=== PATIENT | female | born 1990 | race Caucasian/White ===

== ENCOUNTER 2016-09-12 23:30 | Emergency (ER) | payer MEDICAID ==
[~2016-09-12] VITALS: Ht 162.6 cm; Wt 82.6 kg
[2016-09-12 23:31] VITALS: BP 119/73
== END 2016-09-13 01:16 | disposition home or self-care (01) ==
LOC: ED 09-13 01:02
DX: K01.1 Impacted teeth (principal)
CPT/HCPCS: 99283

== ENCOUNTER 2016-10-23 12:29 | Emergency (ER) | payer MEDICAID ==
[~2016-10-23] VITALS: Ht 162.6 cm; Wt 83.0 kg
[2016-10-23 12:30] VITALS: BP 116/74
[2016-10-23] MEDS ORDERED: LIDOCAINE 1%, 20ML ONE (13:05)
[2016-10-23] MEDS ORDERED: BACITRACIN ZINC OINT 500U/GM, 0.9 GM ONE (13:28)
[2016-10-23] MEDS ORDERED: LIDOCAINE 1%, 20ML SQ ONE (13:30)
== END 2016-10-23 13:41 | disposition home or self-care (01) ==
LOC: ED 13:35
DX: S61.411A Laceration without foreign body of right hand, initial encounter (principal); X58.XXXA Exposure to other specified factors, initial encounter; Y93.89 Activity, other specified; Y99.8 Other external cause status; Y92.099 Unspecified place in other non-institutional residence as the place of occurrence of the external cause
CPT/HCPCS: 12002; 99283

== ENCOUNTER 2016-10-24 16:57 | Emergency (ER) | payer MEDICAID ==
[~2016-10-24] VITALS: Ht 162.6 cm; Wt 84.8 kg
[2016-10-24 17:18] VITALS: BP 110/75
[2016-10-24] MEDS ORDERED: BACITRACIN ZINC OINT 500U/GM, 0.9 GM ONE (18:38)
== END 2016-10-24 18:48 | disposition home or self-care (01) ==
LOC: ED 18:42
DX: S61.411D Laceration without foreign body of right hand, subsequent encounter (principal)
CPT/HCPCS: 99284

== ENCOUNTER 2017-01-21 19:39 | Emergency (ER) | payer MEDICAID ==
[~2017-01-21] VITALS: Ht 162.6 cm; Wt 82.8 kg
[2017-01-21] MEDS ORDERED: PHENAZOPYRIDINE 200 MG TABLET PO ONE (20:00)
[2017-01-21] MEDS ORDERED: PHENAZOPYRIDINE 200 MG TABLET ONE (20:08)
[2017-01-21 20:13] LABS: HEMATOCRIT 44.1 % (34.6-47.8); HEMOGLOBIN 14.9 g/dL (11.7-16.4); WHITE BLOOD COUNT 11.6 x10^3/uL (3.4-10)
[2017-01-21 20:26] LABS: ASPARTATE AMINO TRANSFERASE 21 U/L (15-37); BLOOD UREA NITROGEN 10 mg/dL (7-18)
[2017-01-21 21:53] VITALS: BP 112/60
== END 2017-01-21 23:15 | disposition home or self-care (01) ==
LOC: ED 21:08
DX: N30.90 Cystitis, unspecified without hematuria (principal); Z32.01 Encounter for pregnancy test, result positive
CPT/HCPCS: 36415; 76700; 76801; 80048; 80076; 81001; 82040; 83690; 84702; 84703; 85025; 87086; 87147; 99285

== ENCOUNTER 2017-02-25 13:33 | Emergency (ER) | payer MEDICAID ==
[~2017-02-25] VITALS: Ht 162.6 cm; Wt 77.0 kg
[2017-02-25] MEDS ORDERED: SODIUM CHLORIDE FLUSH 10ML SYR IVF ONE (15:00)
[2017-02-25] MEDS ORDERED: SODIUM CHLORIDE 0.9% 1,000ML IVBOLUS ONE (15:00)
[2017-02-25 15:12] LABS: BASOPHILS # (AUTO) 0.03 x10^3/uL (0-0.1); BASOPHILS % (AUTO) 0 % (0-1); EOSINOPHILS # (AUTO) 0.08 x10^3/uL (0-0.4); EOSINOPHILS % (AUTO) 1 % (1-7); LYMPHOCYTES # (AUTO) 3.09 x10^3/uL (1-3.4); LYMPHOCYTES % (AUTO) 33 % (22-44); MD NO; MEAN CORPUSCULAR HGB CONC 33.7 g/dL (32.4-35.8); MEAN CORPUSCULAR VOLUME 89.3 fL (80-100); MEAN PLATELET VOLUME 8.3 fL (7.4-10.4); MONOCYTES % (AUTO) 5 % (2-9); NEUTROPHILS # (AUTO) 5.76 x10^3/uL (1.8-6.8); NEUTROPHILS % (AUTO) 61 % (42-75); PLATELET COUNT 279 x10^3/uL (130-400); RED BLOOD COUNT 4.55 x10^6/uL (3.82-5.3); RED CELL DISTRIBUTION WIDTH 13.4 % (9.6-15.2)
[2017-02-25 15:23] LABS: ALANINE AMINOTRANSFERASE 17 U/L (12-78); ALBUMIN 3.7 g/dL (3.4-5.0); ANION GAP 9 mmol/L (5-15); CALCIUM 8.7 mg/dL (8.5-10.1); CHLORIDE 107 mmol/L (98-107); CREATININE 0.66 mg/dL (0.55-1.02)
[2017-02-25 15:40] LABS: ALKALINE PHOSPHATASE 62 U/L (45-117); BILIRUBIN,TOTAL 0.4 mg/dL (0.2-1.0); TOTAL PROTEIN 7.9 g/dL (6.4-8.2)
[2017-02-25 17:16] VITALS: BP 118/61
[2017-02-25 18:51] LABS: MICROSCOPIC INDICATED
[2017-02-25 19:03] LABS: CULTURE INDICATED? YES
== END 2017-02-25 19:40 | disposition home or self-care (01) ==
LOC: ED 17:32
DX: O23.11 Infections of bladder in pregnancy, first trimester (principal); Z3A.11 11 weeks gestation of pregnancy
CPT/HCPCS: 36415; 76801; 80053; 81001; 84702; 85025; 86901; 87086; 99285

== ENCOUNTER 2017-06-08 16:47 | Emergency (ER) | payer MEDICAID ==
[~2017-06-08] VITALS: Ht 162.6 cm; Wt 83.8 kg
[2017-06-08] MEDS ORDERED: PREN1TAB28 PO (17:14)
[2017-06-08 17:45] VITALS: BP 122/65
== END 2017-06-08 18:58 | disposition home or self-care (01) ==
LOC: ED 18:45
DX: O99.512 Diseases of the respiratory system complicating pregnancy, second trimester (principal); O99.89 Other specified diseases and conditions complicating pregnancy, childbirth and the puerperium; O21.9 Vomiting of pregnancy, unspecified; J32.1 Chronic frontal sinusitis; H66.001 Acute suppurative otitis media without spontaneous rupture of ear drum, right ear; Z3A.24 24 weeks gestation of pregnancy
CPT/HCPCS: 99283

== ENCOUNTER 2017-12-25 14:06 | Emergency (ER) | payer MEDICAID ==
[~2017-12-25] VITALS: Ht 162.6 cm; Wt 89.5 kg
[~2017-12-25 14:06] MED LIST: PREN1TAB28 PO
[2017-12-25 14:50] LABS: ALANINE AMINOTRANSFERASE 53 U/L (12-78); ALBUMIN 3.9 g/dL (3.4-5.0); ANION GAP 7 mmol/L (5-15); CALCIUM 8.4 mg/dL (8.5-10.1); CHLORIDE 108 mmol/L (98-107); CREATININE 0.88 mg/dL (0.55-1.02)
[2017-12-25 14:52] LABS: ALKALINE PHOSPHATASE 99 U/L (45-117); BILIRUBIN,TOTAL 0.5 mg/dL (0.2-1.0); TOTAL PROTEIN 7.7 g/dL (6.4-8.2)
[2017-12-25 14:55] LABS: BASOPHILS # (AUTO) 0.05 x10^3/uL (0-0.1); BASOPHILS % (AUTO) 1 % (0-1); EOSINOPHILS # (AUTO) 0.29 x10^3/uL (0-0.4); EOSINOPHILS % (AUTO) 3 % (1-7); LYMPHOCYTES # (AUTO) 2.66 x10^3/uL (1-3.4); LYMPHOCYTES % (AUTO) 31 % (22-44); MD NO; MEAN CORPUSCULAR HEMOGLOBIN 29.9 pg (27.0-34.8); MEAN CORPUSCULAR HGB CONC 33.8 g/dL (32.4-35.8); MEAN CORPUSCULAR VOLUME 88.5 fL (80-100); MEAN PLATELET VOLUME 8.1 fL (7.4-10.4); MONOCYTES # (AUTO) 0.59 x10^3/uL (0.2-0.8); MONOCYTES % (AUTO) 7 % (2-9); NEUTROPHILS # (AUTO) 4.88 x10^3/uL (1.8-6.8); NEUTROPHILS % (AUTO) 58 % (42-75); PLATELET COUNT 273 x10^3/uL (130-400); RED CELL DISTRIBUTION WIDTH 14.1 % (9.6-15.2)
[2017-12-25 16:35] LABS: HCG UR SG 1.029 (1.003-1.030)
[2017-12-25 17:53] VITALS: BP 105/69
[2017-12-25 18:19] LABS: MICROSCOPIC AUTO
[2017-12-25 18:22] LABS: CULTURE INDICATED? NO
== END 2017-12-25 17:55 | disposition home or self-care (01) ==
LOC: ED 16:08
DX: N93.8 Other specified abnormal uterine and vaginal bleeding (principal)
CPT/HCPCS: 36415; 76830; 80053; 81001; 81025; 85025; 93005; 99285

== ENCOUNTER 2018-07-23 17:38 | Emergency (ER) | payer MEDICAID ==
[~2018-07-23] VITALS: Ht 160 cm; Wt 82.1 kg
[2018-07-23 18:07] VITALS: BP 102/65
[2018-07-23 18:39] LABS: BASOPHILS # (AUTO) 0.04 x10^3/uL (0-0.1); BASOPHILS % (AUTO) 1 % (0-1); EOSINOPHILS # (AUTO) 0.12 x10^3/uL (0-0.4); EOSINOPHILS % (AUTO) 1 % (1-7); LYMPHOCYTES # (AUTO) 3.02 x10^3/uL (1-3.4); LYMPHOCYTES % (AUTO) 36 % (22-44); MD NO; MEAN CORPUSCULAR HEMOGLOBIN 30.5 pg (27.0-34.8); MEAN CORPUSCULAR VOLUME 92.4 fL (80-100); MEAN PLATELET VOLUME 7.8 fL (7.4-10.4); MONOCYTES # (AUTO) 0.49 x10^3/uL (0.2-0.8); MONOCYTES % (AUTO) 6 % (2-9); NEUTROPHILS # (AUTO) 4.73 x10^3/uL (1.8-6.8); NEUTROPHILS % (AUTO) 56 % (42-75); PLATELET COUNT 251 x10^3/uL (130-400); RED BLOOD COUNT 4.04 x10^6/uL (3.82-5.3); RED CELL DISTRIBUTION WIDTH 13.5 % (9.6-15.2)
[2018-07-23 18:51] LABS: ALANINE AMINOTRANSFERASE 10 U/L (12-78); ALBUMIN 3.2 g/dL (3.4-5.0); ANION GAP 6 mmol/L (5-15); CALCIUM 8.5 mg/dL (8.5-10.1); CHLORIDE 110 mmol/L (98-107)
[2018-07-23 18:52] LABS: TOTAL PROTEIN 6.9 g/dL (6.4-8.2)
[2018-07-23 18:59] LABS: ALKALINE PHOSPHATASE 59 U/L (45-117)
[2018-07-23 19:02] LABS: BILIRUBIN,TOTAL < 0.1 mg/dL (0.2-1.0)
--- NOTE | 2018-07-23 20:26 | NUR ---
pt back from us. family at bedside. pt resting in bed comfortably. warm blanket offered. pt has no wants or needs at this time. pt encouraged to call rn for any needs.
[2018-07-23 21:27] LABS: MICROSCOPIC AUTO
[2018-07-23 21:29] LABS: CULTURE INDICATED? NO
== END 2018-07-23 21:47 | disposition home or self-care (01) ==
LOC: ED 20:59
DX: O26.891 Other specified pregnancy related conditions, first trimester (principal); Z3A.13 13 weeks gestation of pregnancy; R10.30 Lower abdominal pain, unspecified; R11.2 Nausea with vomiting, unspecified
CPT/HCPCS: 36415; 76801; 80053; 81001; 84702; 84703; 85025; 86901; 99284

== ENCOUNTER 2019-01-24 19:17 | Emergency (ER) | payer MEDICAID ==
[~2019-01-24] VITALS: Ht 162.6 cm; Wt 87.4 kg
[2019-01-24 19:54] LABS: BASOPHILS # (AUTO) 0.03 x10^3/uL (0-0.1); BASOPHILS % (AUTO) 1 % (0-1); EOSINOPHILS # (AUTO) 0.14 x10^3/uL (0-0.4); EOSINOPHILS % (AUTO) 2 % (1-7); LYMPHOCYTES # (AUTO) 2.76 x10^3/uL (1-3.4); LYMPHOCYTES % (AUTO) 43 % (22-44); MD NO; MEAN CORPUSCULAR HEMOGLOBIN 30.1 pg (27.0-34.8); MEAN CORPUSCULAR HGB CONC 32.5 g/dL (32.4-35.8); MEAN CORPUSCULAR VOLUME 92.7 fL (80-100); MONOCYTES # (AUTO) 0.54 x10^3/uL (0.2-0.8); MONOCYTES % (AUTO) 8 % (2-9); NEUTROPHILS # (AUTO) 2.99 x10^3/uL (1.8-6.8); NEUTROPHILS % (AUTO) 46 % (42-75); PLATELET COUNT 287 x10^3/uL (130-400); RED BLOOD COUNT 4.78 x10^6/uL (3.82-5.3); RED CELL DISTRIBUTION WIDTH 14.3 % (9.6-15.2)
[2019-01-24] MEDS ORDERED: PHENAZOPYRIDINE 200 MG TABLET PO ONE (20:00)
[2019-01-24] MEDS ORDERED: ONDANSETRON ODT 4 MG PO ONE ×2 (20:00→22:00)
[2019-01-24 20:06] LABS: ALANINE AMINOTRANSFERASE 30 U/L (12-78); ALBUMIN 3.7 g/dL (3.4-5.0); ANION GAP 4 mmol/L (5-15); CALCIUM 9.2 mg/dL (8.5-10.1); CHLORIDE 106 mmol/L (98-107)
[2019-01-24 20:08] LABS: ALKALINE PHOSPHATASE 94 U/L (45-117); BILIRUBIN,TOTAL 0.2 mg/dL (0.2-1.0); TOTAL PROTEIN 7.9 g/dL (6.4-8.2)
--- NOTE | 2019-01-24 20:25 | NUR ---
pt called to room from lobby
--- NOTE | 2019-01-24 20:42 | NUR ---
PT HAS CO OF DYSURIA, BACK PAIN AND FEVER. HX OF UTI
[2019-01-24 20:45] LABS: HCG UR SG 1.018 (1.003-1.030); MICROSCOPIC NOT IND
[2019-01-24 20:48] LABS: CULTURE INDICATED? NO
--- NOTE | 2019-01-24 20:56 | NUR ---
REPORT TO REECE
[2019-01-24] MEDS ORDERED: PHENAZOPYRIDINE 200 MG TABLET ONE ×2 (21:18→21:20)
[2019-01-24] MEDS ORDERED: ONDANSETRON ODT 4 MG ONE (21:18)
[2019-01-24] MEDS ORDERED: HYDROcodone/APAP 5/325 TABLET PO ONE (21:30)
[2019-01-24] MEDS ORDERED: HYDROcodone/APAP 5/325 TABLET ONE (22:00)
--- NOTE | 2019-01-24 22:09 | NUR ---
PT TO US AT THIS TIME.
--- NOTE | 2019-01-24 22:40 | NUR ---
PT MEDICATED FOR PAIN, LIGHTS TURNED OFF FOR COMFORT.
[2019-01-24 23:12] VITALS: BP 114/64
[2019-01-24] MEDS ORDERED: FLUCONAZOLE 100 MG TABLET PO ONE (23:30)
[2019-01-24] MEDS ORDERED: FLUCONAZOLE 100 MG TABLET ONE (23:32)
== END 2019-01-24 23:40 | disposition home or self-care (01) ==
LOC: ED 21:15
DX: R10.30 Lower abdominal pain, unspecified (principal); N89.8 Other specified noninflammatory disorders of vagina; M54.5 Low back pain
CPT/HCPCS: 36415; 76830; 80053; 81003; 81025; 83690; 85025; 87491; 87591; 99284; Q0162

== ENCOUNTER 2019-03-16 02:17 | Emergency (ER) | payer SELFPAY ==
[~2019-03-16] VITALS: Ht 162.6 cm; Wt 86.4 kg
--- NOTE | 2019-03-16 02:41 | NUR ---
PT PRESENTED WITH C/O SEVERE ABD CRAMPING, N/V/D AND H/A SINCE YESTERDAY. PT RESTING ON GURNEY, MONITORS APPLIED, SIDERAILS UP X2, CALL LIGHT WITHIN REACH
--- NOTE | 2019-03-16 02:51 | NUR ---
PT UP TO RR WITH STEADY GAIT
[2019-03-16] MEDS ORDERED: ONDANSETRON 2MG/ML, 2ML IVPush ONE (03:00)
[2019-03-16] MEDS ORDERED: SODIUM CHLORIDE 0.9% 1,000ML IVBOLUS ONE (03:00)
[2019-03-16] MEDS ORDERED: KETOROLAC 30 MG/1 ML IVPush ONE (03:00)
[2019-03-16] MEDS ORDERED: KETOROLAC 30 MG/1 ML ONE (03:05)
[2019-03-16] MEDS ORDERED: ONDANSETRON 2MG/ML, 2ML ONE (03:05)
--- NOTE | 2019-03-16 03:08 | NUR ---
IV SITE STARTED, LABS DRAWN, IV FLUIDS INFUSING, PT MEDICATED PER MAR. AWAITING LAB RESULTS
[2019-03-16 03:12] LABS: BASOPHILS # (AUTO) 0.04 x10^3/uL (0-0.1); BASOPHILS % (AUTO) 0 % (0-1); EOSINOPHILS # (AUTO) 0.26 x10^3/uL (0-0.4); EOSINOPHILS % (AUTO) 3 % (1-7); LYMPHOCYTES # (AUTO) 2.95 x10^3/uL (1-3.4); LYMPHOCYTES % (AUTO) 31 % (22-44); MD NO; MEAN CORPUSCULAR HEMOGLOBIN 30.6 pg (27.0-34.8); MEAN CORPUSCULAR HGB CONC 33.8 g/dL (32.4-35.8); MEAN CORPUSCULAR VOLUME 90.4 fL (80-100); MEAN PLATELET VOLUME 8.1 fL (7.4-10.4); MONOCYTES # (AUTO) 0.59 x10^3/uL (0.2-0.8); MONOCYTES % (AUTO) 6 % (2-9); NEUTROPHILS # (AUTO) 5.82 x10^3/uL (1.8-6.8); NEUTROPHILS % (AUTO) 60 % (42-75); PLATELET COUNT 264 x10^3/uL (130-400); RED BLOOD COUNT 4.52 x10^6/uL (3.82-5.3); RED CELL DISTRIBUTION WIDTH 13.7 % (9.6-15.2)
[2019-03-16 03:13] LABS: MICROSCOPIC AUTO
[2019-03-16 03:14] LABS: CULTURE INDICATED? YES
[2019-03-16 03:21] LABS: ALANINE AMINOTRANSFERASE 14 U/L (12-78); ALBUMIN 3.7 g/dL (3.4-5.0); ANION GAP 5 mmol/L (5-15); CALCIUM 8.8 mg/dL (8.5-10.1); CHLORIDE 107 mmol/L (98-107); CREATININE 0.69 mg/dL (0.55-1.02)
[2019-03-16 03:36] LABS: ALKALINE PHOSPHATASE 74 U/L (45-117); BILIRUBIN,TOTAL 0.2 mg/dL (0.2-1.0); TOTAL PROTEIN 8.2 g/dL (6.4-8.2)
[2019-03-16 05:56] VITALS: BP 91/44
== END 2019-03-16 06:05 | disposition home or self-care (01) ==
LOC: ED 02:52
DX: O26.891 Other specified pregnancy related conditions, first trimester (principal); K52.9 Noninfective gastroenteritis and colitis, unspecified; R11.2 Nausea with vomiting, unspecified; Z3A.09 9 weeks gestation of pregnancy
CPT/HCPCS: 36415; 76801; 80053; 81001; 83690; 84702; 85025; 87086; 96361; 96374; 96375; 99284; J1885; J2405; J7030; 84703

== ENCOUNTER 2019-04-03 19:53 | Inpatient (IN) | payer OTHER ==
[~2019-04-03] VITALS: Ht 162.6 cm; Wt 85.4 kg
[2019-04-03] MEDS ORDERED: ONDANSETRON 2MG/ML, 2ML ONE (20:29)
[2019-04-03] MEDS ORDERED: MORPHINE SULFATE 4 MG/ML, 1ML ONE (20:29)
[2019-04-03] MEDS ORDERED: SODIUM CHLORIDE 0.9% 1,000ML IVBOLUS ONE (20:30)
[2019-04-03] MEDS ORDERED: MORPHINE SULFATE 4 MG/ML, 1ML IVPush PRN (20:30)
[2019-04-03] MEDS ORDERED: SODIUM CHLORIDE FLUSH 10ML SYR IVF ONE (20:30)
[2019-04-03] MEDS ORDERED: ONDANSETRON 2MG/ML, 2ML IVPush ONE (20:30)
--- NOTE | 2019-04-03 20:35 | NUR ---
PT REFUSED TO GIVE UA AT THIS TIME.
[2019-04-03 20:50] LABS: BASOPHILS # (AUTO) 0.03 x10^3/uL (0-0.1); BASOPHILS % (AUTO) 0 % (0-1); EOSINOPHILS # (AUTO) 0.04 x10^3/uL (0-0.4); EOSINOPHILS % (AUTO) 1 % (1-7); LYMPHOCYTES # (AUTO) 0.94 x10^3/uL (1-3.4); LYMPHOCYTES % (AUTO) 13 % (22-44); MD NO; MEAN CORPUSCULAR HEMOGLOBIN 31.3 pg (27.0-34.8); MEAN CORPUSCULAR HGB CONC 34.3 g/dL (32.4-35.8); MEAN CORPUSCULAR VOLUME 91.2 fL (80-100); MEAN PLATELET VOLUME 7.9 fL (7.4-10.4); MONOCYTES # (AUTO) 0.46 x10^3/uL (0.2-0.8); MONOCYTES % (AUTO) 6 % (2-9); NEUTROPHILS % (AUTO) 80 % (42-75); PLATELET COUNT 225 x10^3/uL (130-400); RED BLOOD COUNT 4.45 x10^6/uL (3.82-5.3); RED CELL DISTRIBUTION WIDTH 13.5 % (9.6-15.2)
--- NOTE | 2019-04-03 20:50 | NUR ---
PT C/O RUQ PAIN OFF AND ON FOR ABOUT A MONTH, PT REPORTS INCREASED PAIN STARTING TODAY AFTER SHE ATE LUNCH, PT VOMITING EVERY 3-5MIN, DENIES DIARRHEA OR OTHER C/O AT THIS TIME. PT CONNECTED TO MONITORING, CALL LIGHT WITHIN REACH, ALL SAFETY MEASURES IN PLACE. LABS DRAWN, PT TO IMAGING AT THIS TIME.
[2019-04-03 20:59] LABS: ALANINE AMINOTRANSFERASE 25 U/L (12-78); ALBUMIN 3.8 g/dL (3.4-5.0); ANION GAP 9 mmol/L (5-15); CALCIUM 8.8 mg/dL (8.5-10.1); CHLORIDE 107 mmol/L (98-107); CREATININE 0.76 mg/dL (0.55-1.02)
[2019-04-03 21:01] LABS: ALKALINE PHOSPHATASE 66 U/L (45-117); BILIRUBIN,TOTAL 0.3 mg/dL (0.2-1.0); TOTAL PROTEIN 8.3 g/dL (6.4-8.2)
[2019-04-03] MEDS ORDERED: HYDROmorphone 1 MG/ML, 1ML INJ ONE (21:18)
[2019-04-03] MEDS ORDERED: METOCLOPRAMIDE 5 MG/ML, 2ML ONE (21:18)
[2019-04-03] MEDS ORDERED: FAMOTIDINE 20 MG/2 ML ONE (21:18)
--- NOTE | 2019-04-03 21:26 | NUR ---
PT MOANING AND VOMITING. ERP NOTIFIED. PT MEDICATED PER APR. PT UPDATED ON POC.
--- NOTE | 2019-04-03 21:27 | NUR ---
PT CONTINUES TO REFUSE UA.
[2019-04-03] MEDS ORDERED: HYDROmorphone 1 MG/ML, 1ML INJ IV ONE (21:30)
[2019-04-03] MEDS ORDERED: FAMOTIDINE 20 MG/2 ML IVPush ONE (21:30)
[2019-04-03] MEDS ORDERED: METOCLOPRAMIDE 5 MG/ML, 2ML IVPush ONE (21:30)
[2019-04-03] MEDS ORDERED: SODIUM CHLORIDE 0.9% 1,000 ML IV ONE (22:20)
[2019-04-03 22:38] LABS: MICROSCOPIC AUTO
[2019-04-03 22:45] LABS: CULTURE INDICATED? YES
[2019-04-03 23:20] VITALS: BP 108/67
[2019-04-04] VITALS (11 sets, daily range): BP systolic 63–163; BP diastolic 62–76
[2019-04-04] MEDS: LACTATED RINGERS 1,000 ML IV SCH ×2 (00:56→09:51)
[2019-04-04] MEDS: HYDROmorphone 2 MG/ML, 1ML IVPush PRN ×3 (00:56→08:41)
[2019-04-04] MEDS ORDERED: LIDODERM 5% PATCH TD PRN (01:00)
[2019-04-04] MEDS: METOCLOPRAMIDE 5 MG/ML, 2ML IVPush PRN ×3 (05:00→20:15)
[2019-04-04 05:36] LABS: BASOPHILS # (AUTO) 0.01 x10^3/uL (0-0.1); BASOPHILS % (AUTO) 0 % (0-1); EOSINOPHILS % (AUTO) 0 % (1-7); LYMPHOCYTES # (AUTO) 0.63 x10^3/uL (1-3.4); LYMPHOCYTES % (AUTO) 11 % (22-44); MD NO; MEAN CORPUSCULAR HEMOGLOBIN 31.1 pg (27.0-34.8); MEAN CORPUSCULAR VOLUME 91.4 fL (80-100); MEAN PLATELET VOLUME 8.3 fL (7.4-10.4); MONOCYTES # (AUTO) 0.45 x10^3/uL (0.2-0.8); MONOCYTES % (AUTO) 8 % (2-9); NEUTROPHILS # (AUTO) 4.47 x10^3/uL (1.8-6.8); NEUTROPHILS % (AUTO) 80 % (42-75); PLATELET COUNT 181 x10^3/uL (130-400)
[2019-04-04 05:42] LABS: ANION GAP 7 mmol/L (5-15); CALCIUM 8.2 mg/dL (8.5-10.1); CHLORIDE 108 mmol/L (98-107)
[2019-04-04 05:43] LABS: CREATININE 0.68 mg/dL (0.55-1.02)
[2019-04-04] MEDS ORDERED: POLYETHYLENE GLYCOL 17 GM PACKET PO ONE (09:00)
[2019-04-04] MEDS ORDERED: DOCUSATE 50 MG/5 ML, 10ML UDC PO PRN (09:00)
[2019-04-04] MEDS ORDERED: POLYETHYLENE GLYCOL 17 GM PACKET PO PRN (09:00)
[2019-04-04] MEDS: CEFTRIAXONE PMX 1GM/50ML 50 ML IV SCH (09:18)
[2019-04-04] MEDS ORDERED: DOCUSATE 100 MG CAPSULE PO PRN (09:30)
[2019-04-04] MEDS: FAMOTIDINE 20 MG/2 ML IVPush SCH ×2 (09:51→20:53)
[2019-04-04] MEDS: DOXYLAMINE 25MG TABLET PO SCH ×2 (09:51→20:53)
[2019-04-04] MEDS: PYRIDOXINE 25MG TABLET PO SCH ×2 (09:51→20:54)
--- NOTE | 2019-04-04 09:56 | NUR ---
HEIDE SALEEM - Fall Risk Medications present and NOT receiving anticoagulants. LAST PRN DILAUDID DOSES WERE 1 MG IV ADMIN AT 0501 AND 0841 04/04/19 AM Signed: 04/04/19 at 1001 by Matt MOORE
[2019-04-04] MEDS: MORPHINE SULFATE 4 MG/ML, 1ML IVPush PRN ×3 (12:02→20:54)
[2019-04-04] MEDS ORDERED: BISACODYL 10 MG SUPP PR PRN (17:30)
[2019-04-04] MEDS: DOCUSATE 100 MG CAPSULE PO SCH ×2 (17:32→20:53)
[2019-04-04] MEDS: ACETAMINOPHEN 325 MG TABLET PO PRN (20:54)
[2019-04-05 00:31] VITALS: BP 104/68
[2019-04-05] MEDS: LACTATED RINGERS 1,000 ML IV SCH ×2 (02:12→21:44)
[2019-04-05] MEDS: MORPHINE SULFATE 4 MG/ML, 1ML IVPush PRN ×5 (02:57→20:24)
[2019-04-05] MEDS: METOCLOPRAMIDE 5 MG/ML, 2ML IVPush PRN ×3 (02:57→20:24)
[2019-04-05 05:24] LABS: BASOPHILS # (AUTO) 0.01 x10^3/uL (0-0.1); BASOPHILS % (AUTO) 0 % (0-1); EOSINOPHILS # (AUTO) 0.02 x10^3/uL (0-0.4); EOSINOPHILS % (AUTO) 0 % (1-7); LYMPHOCYTES # (AUTO) 1.15 x10^3/uL (1-3.4); LYMPHOCYTES % (AUTO) 29 % (22-44); MD NO; MEAN CORPUSCULAR HEMOGLOBIN 30.9 pg (27.0-34.8); MEAN CORPUSCULAR HGB CONC 34.3 g/dL (32.4-35.8); MEAN CORPUSCULAR VOLUME 90.1 fL (80-100); MEAN PLATELET VOLUME 8.2 fL (7.4-10.4); MONOCYTES # (AUTO) 0.45 x10^3/uL (0.2-0.8); MONOCYTES % (AUTO) 11 % (2-9); NEUTROPHILS # (AUTO) 2.32 x10^3/uL (1.8-6.8); NEUTROPHILS % (AUTO) 59 % (42-75); PLATELET COUNT 158 x10^3/uL (130-400); RED CELL DISTRIBUTION WIDTH 14.2 % (9.6-15.2)
[2019-04-05 05:26] LABS: ANION GAP 6 mmol/L (5-15); CALCIUM 7.7 mg/dL (8.5-10.1); CHLORIDE 108 mmol/L (98-107); CREATININE 0.61 mg/dL (0.55-1.02)
[2019-04-05 07:18] VITALS: BP 104/65
[2019-04-05] MEDS: DOCUSATE 100 MG CAPSULE PO SCH ×2 (07:27→20:26)
[2019-04-05] MEDS: CEFTRIAXONE PMX 1GM/50ML 50 ML IV SCH (07:29)
[2019-04-05] MEDS: FAMOTIDINE 20 MG/2 ML IVPush SCH (07:29)
[2019-04-05] MEDS: DOXYLAMINE 25MG TABLET PO SCH ×2 (07:29→20:24)
[2019-04-05] MEDS: PYRIDOXINE 25MG TABLET PO SCH ×2 (07:29→20:24)
[2019-04-05] MEDS ORDERED: POTASSIUM CHLORIDE 40 MEQ in SODIUM CHLORIDE 0.9% 500 ML IV ONE (07:30)
[2019-04-05] MEDS: ACETAMINOPHEN 325 MG TABLET PO PRN ×2 (08:20→14:04)
[2019-04-05 12:30] VITALS: BP 104/67
[2019-04-05 18:59] VITALS: BP 102/65
[2019-04-05] MEDS: FAMOTIDINE 10 MG TAB PO SCH (20:24)
[2019-04-05] MEDS: POLYETHYLENE GLYCOL 17 GM PACKET PO SCH (20:26)
[2019-04-06 00:45] VITALS: BP 97/61
[2019-04-06] MEDS: LACTATED RINGERS 1,000 ML IV SCH (05:17)
[2019-04-06 07:05] VITALS: BP 100/61
[2019-04-06] MEDS: MORPHINE SULFATE 4 MG/ML, 1ML IVPush PRN ×3 (08:04→22:46)
[2019-04-06] MEDS: METOCLOPRAMIDE 5 MG/ML, 2ML IVPush PRN ×2 (08:04→15:03)
[2019-04-06] MEDS: DOCUSATE 100 MG CAPSULE PO SCH ×2 (08:05→20:46)
[2019-04-06] MEDS: PYRIDOXINE 25MG TABLET PO SCH ×2 (08:05→20:46)
[2019-04-06] MEDS: FAMOTIDINE 10 MG TAB PO SCH ×2 (08:05→20:46)
[2019-04-06] MEDS: POLYETHYLENE GLYCOL 17 GM PACKET PO SCH (08:05)
[2019-04-06] MEDS: DOXYLAMINE 25MG TABLET PO SCH ×2 (08:05→20:46)
[2019-04-06] MEDS: CEFTRIAXONE PMX 1GM/50ML 50 ML IV SCH (08:05)
[2019-04-06] MEDS: ACETAMINOPHEN 325 MG TABLET PO PRN (11:48)
[2019-04-06] MEDS ORDERED: MORPHINE SULFATE 4 MG/ML, 1ML IVPush PRN (12:30)
[2019-04-06] MEDS: ONDANSETRON 2MG/ML, 2ML IVPush PRN (12:46)
[2019-04-06 13:47] VITALS: BP 117/74
[2019-04-06] MEDS: NS + 20MEQ KCL 1,000 ML IV SCH (17:16)
[2019-04-06 19:56] VITALS: BP 97/61
[2019-04-07 02:42] VITALS: BP 99/59
[2019-04-07] MEDS: NS + 20MEQ KCL 1,000 ML IV SCH ×2 (02:46→12:30)
[2019-04-07 04:39] LABS: BASOPHILS # (AUTO) 0.02 x10^3/uL (0-0.1); BASOPHILS % (AUTO) 0 % (0-1); EOSINOPHILS # (AUTO) 0.08 x10^3/uL (0-0.4); EOSINOPHILS % (AUTO) 2 % (1-7); LYMPHOCYTES # (AUTO) 2.09 x10^3/uL (1-3.4); LYMPHOCYTES % (AUTO) 49 % (22-44); MD NO; MEAN CORPUSCULAR HEMOGLOBIN 30.7 pg (27.0-34.8); MEAN CORPUSCULAR HGB CONC 34.3 g/dL (32.4-35.8); MEAN CORPUSCULAR VOLUME 89.5 fL (80-100); MEAN PLATELET VOLUME 7.9 fL (7.4-10.4); MONOCYTES # (AUTO) 0.38 x10^3/uL (0.2-0.8); MONOCYTES % (AUTO) 9 % (2-9); NEUTROPHILS # (AUTO) 1.74 x10^3/uL (1.8-6.8); NEUTROPHILS % (AUTO) 41 % (42-75); PLATELET COUNT 182 x10^3/uL (130-400); RED BLOOD COUNT 3.63 x10^6/uL (3.82-5.3); RED CELL DISTRIBUTION WIDTH 14.3 % (9.6-15.2)
[2019-04-07 04:47] LABS: ALBUMIN 2.6 g/dL (3.4-5.0); ANION GAP 7 mmol/L (5-15); CALCIUM 7.4 mg/dL (8.5-10.1); CHLORIDE 111 mmol/L (98-107)
[2019-04-07 04:51] LABS: ALANINE AMINOTRANSFERASE 18 U/L (12-78); ALKALINE PHOSPHATASE 49 U/L (45-117); BILIRUBIN,TOTAL 0.6 mg/dL (0.2-1.0); CREATININE 0.66 mg/dL (0.55-1.02); TOTAL PROTEIN 6.2 g/dL (6.4-8.2)
[2019-04-07 07:23] VITALS: BP 94/59
[2019-04-07] MEDS: POLYETHYLENE GLYCOL 17 GM PACKET PO SCH (09:00)
[2019-04-07] MEDS: ONDANSETRON 2MG/ML, 2ML IVPush PRN (09:16)
[2019-04-07] MEDS: DOCUSATE 100 MG CAPSULE PO SCH (09:16)
[2019-04-07] MEDS: FAMOTIDINE 10 MG TAB PO SCH (09:17)
[2019-04-07] MEDS: DOXYLAMINE 25MG TABLET PO SCH (09:17)
[2019-04-07] MEDS: PYRIDOXINE 25MG TABLET PO SCH (09:17)
[2019-04-07] MEDS: CEFTRIAXONE PMX 1GM/50ML 50 ML IV SCH (09:20)
[2019-04-07] MEDS ORDERED: PREN1TAB62 PO (13:22)
[2019-04-07] MEDS ORDERED: PYRI25TA2 PO (13:22)
[2019-04-07] MEDS ORDERED: DOXY25TA45 PO (13:22)
[2019-04-07] MEDS ORDERED: CEFD300C37 PO (13:22)
[2019-04-07] MEDS ORDERED: ONDA4TAB7 PO (13:23)
[2019-04-07 14:13] VITALS: BP 100/63
== END 2019-04-07 15:22 | disposition home or self-care (01) | DRG 832 ==
LOC: ED 22:51 → 3N 23:00 → DCLOUNGE 04-07 15:18
PROVIDERS: ADMIT Family Medicine; ATTEND Family Medicine
PROC: 0T9B70Z Drainage of Bladder with Drainage Device, Via Natural or Artificial Opening (ICD-10-PCS; principal; 2019-04-03)
DX: O23.41 Unspecified infection of urinary tract in pregnancy, first trimester (principal); O99.321 Drug use complicating pregnancy, first trimester; O99.281 Endocrine, nutritional and metabolic diseases complicating pregnancy, first trimester; O21.1 Hyperemesis gravidarum with metabolic disturbance; Z3A.13 13 weeks gestation of pregnancy; Z83.3 Family history of diabetes mellitus; E86.0 Dehydration; F12.90 Cannabis use, unspecified, uncomplicated; K59.00 Constipation, unspecified; W18.39XA Other fall on same level, initial encounter; Y93.89 Activity, other specified; Y92.89 Other specified places as the place of occurrence of the external cause; Y99.8 Other external cause status
CPT/HCPCS: 36415; J3490; 76700; 76801; 80048; 80053; 81001; 83690; 85025; 87086; 87147; G0378; J0696; J1170; J2405; J3480; J2270; J2765; J7030; J7040; J7120

== ENCOUNTER 2019-04-11 17:30 | Emergency (ER) | payer MEDICAID, OTHER ==
[~2019-04-11] VITALS: Ht 162.6 cm; Wt 83.0 kg
[~2019-04-11 17:30] MED LIST changes: +CEFD300C37 PO; +DOXY25TA45 PO; +ONDA4TAB7 PO; +PREN1TAB62 PO; +PYRI25TA2 PO
--- NOTE | 2019-04-11 18:02 | NUR ---
CHIEF SECURITY AND SAFETY OFFICER; PT AMBULATORY WITH STEADY GAIT TO ROOM AT THIS TIME. THADDEUS
[2019-04-11] MEDS ORDERED: PROCHLORPERAZINE 5 MG/ML, 2ML IVPush ONE (18:30)
[2019-04-11] MEDS ORDERED: SODIUM CHLORIDE FLUSH 10ML SYR IVF ONE (18:30)
[2019-04-11] MEDS ORDERED: MORPHINE SULFATE 4 MG/ML, 1ML ONE ×2 (18:37→20:19)
[2019-04-11] MEDS ORDERED: PROCHLORPERAZINE 5 MG/ML, 2ML ONE (18:37)
[2019-04-11] MEDS: MORPHINE SULFATE 4 MG/ML, 1ML IVPush PRN ×2 (18:41→20:21)
--- NOTE | 2019-04-11 18:41 | NUR ---
PER PT REPORT SHE HAS HAD EPIGASTRIC ABD PAIN AND VOMITTING FOR 2 WEEKS. PT WAS ADMITTED LAST WEEK AND DISCHARGED THIS SATURDAY AND SHE CONTINUES TO EXPERIENCE THE SAME SYMPTOMS, PT STATES SHE HAD "104.8" TEMP AT HOME. PT DENIES DIARRHEA. PT CRYING AND MOANING. PIV INITIATED AND PT MEDICATED PER APR
[2019-04-11 18:43] VITALS: BP 110/56
--- NOTE | 2019-04-11 18:54 | NUR ---
RPT RECEIVED FROM FRANCESCA SHEN. ASSUMED CARE OF PT.
[2019-04-11 19:00] LABS: BASOPHILS # (AUTO) 0.02 x10^3/uL (0-0.1); BASOPHILS % (AUTO) 0 % (0-1); EOSINOPHILS # (AUTO) 0.11 x10^3/uL (0-0.4); EOSINOPHILS % (AUTO) 1 % (1-7); LYMPHOCYTES # (AUTO) 2.73 x10^3/uL (1-3.4); LYMPHOCYTES % (AUTO) 32 % (22-44); MD NO; MEAN CORPUSCULAR HEMOGLOBIN 30.4 pg (27.0-34.8); MEAN CORPUSCULAR HGB CONC 33.8 g/dL (32.4-35.8); MEAN CORPUSCULAR VOLUME 90.1 fL (80-100); MEAN PLATELET VOLUME 7.9 fL (7.4-10.4); MONOCYTES % (AUTO) 6 % (2-9); NEUTROPHILS # (AUTO) 5.14 x10^3/uL (1.8-6.8); NEUTROPHILS % (AUTO) 61 % (42-75); PLATELET COUNT 271 x10^3/uL (130-400); RED BLOOD COUNT 4.64 x10^6/uL (3.82-5.3); RED CELL DISTRIBUTION WIDTH 13.7 % (9.6-15.2)
[2019-04-11 19:07] LABS: ALBUMIN 3.7 g/dL (3.4-5.0); ANION GAP 9 mmol/L (5-15); CALCIUM 8.8 mg/dL (8.5-10.1); CHLORIDE 107 mmol/L (98-107)
[2019-04-11 19:11] LABS: ALANINE AMINOTRANSFERASE 23 U/L (12-78); ALKALINE PHOSPHATASE 59 U/L (45-117); BILIRUBIN,TOTAL 0.5 mg/dL (0.2-1.0); TOTAL PROTEIN 8.2 g/dL (6.4-8.2)
[2019-04-11] MEDS ORDERED: DIPHENHYDRAMINE 50 MG/ML, 1ML IVPush PRN (20:00)
[2019-04-11] MEDS ORDERED: DIPHENHYDRAMINE 50 MG/ML, 1ML ONE (20:19)
== END 2019-04-11 21:28 | disposition home or self-care (01) ==
LOC: ED 21:27
DX: O26.891 Other specified pregnancy related conditions, first trimester (principal); O21.8 Other vomiting complicating pregnancy; R10.84 Generalized abdominal pain; Z3A.13 13 weeks gestation of pregnancy
CPT/HCPCS: 36415; 76700; 76801; 80053; 83605; 83690; 84145; 85025; 96374; 96375; 96376; 99285; J0780; J1200; J2270

== ENCOUNTER 2019-07-23 16:53 | Outpatient (CLI) | payer MEDICAID, OTHER ==
[~2019-07-23] VITALS: Ht 162.6 cm; Wt 90.9 kg
[2019-07-23 17:44] LABS: AMPHETAMINE SCREEN, URINE Negative (Negative); BARBITURATE SCREEN, URINE Negative (Negative); BENZODIAZEPINE SCREEN, URINE Negative (Negative); CANNABINOID SCREEN, URINE Positive (Negative); COCAINE SCREEN, URINE Negative (Negative); METHADONE SCREEN, URINE Negative (Negative); OPIATE SCREEN, URINE Negative (Negative)
[2019-07-23] MEDS ORDERED: LACTATED RINGERS 1,000 ML IV SCH ×2 (19:00→19:01)
== END 2019-07-23 20:32 | disposition home or self-care (01) ==
LOC: LDOP 16:53
PROVIDERS: ATTEND Obstetrics & Gynecology
DX: O26.893 Other specified pregnancy related conditions, third trimester (principal); F12.90 Cannabis use, unspecified, uncomplicated; Z3A.31 31 weeks gestation of pregnancy; Z79.899 Other long term (current) drug therapy
CPT/HCPCS: 36415; 76815; 80307; 85460; 86850; 86900; 96360; 96361; 99211; J7120; G0463

== ENCOUNTER 2019-07-28 22:23 | Outpatient (CLI) | payer MEDICAID ==
[~2019-07-28] VITALS: Ht 162.6 cm; Wt 90.9 kg
[~2019-07-28 22:23] MED LIST changes: +LACTATED RINGERS 1,000 ML ONE
[2019-07-28 22:36] VITALS: BP 134/65
[2019-07-28] MEDS ORDERED: TERBUTALINE 1 MG/ML, 1ML ONE (22:54)
[2019-07-28] MEDS ORDERED: TERBUTALINE 1 MG/ML, 1ML SQ ONE (23:00)
[2019-07-28 23:03] LABS: AMPHETAMINE SCREEN, URINE Negative (Negative); BARBITURATE SCREEN, URINE Negative (Negative); CANNABINOID SCREEN, URINE Positive (Negative); COCAINE SCREEN, URINE Negative (Negative); METHADONE SCREEN, URINE Negative (Negative); OPIATE SCREEN, URINE Negative (Negative)
[2019-07-28 23:04] LABS: MICROSCOPIC INDICATED
[2019-07-28] MEDS ORDERED: FENTANYL PF 100 MCG/2ML ONE ×2 (23:07→23:37)
[2019-07-28] MEDS: FENTANYL PF 100 MCG/2ML IVPush PRN ×2 (23:09→23:40)
[2019-07-28 23:10] LABS: BENZODIAZEPINE SCREEN, URINE Negative (Negative)
[2019-07-28] MEDS ORDERED: ONDANSETRON 2MG/ML, 2ML ONE (23:37)
[2019-07-28] MEDS ORDERED: BISACODYL 10 MG SUPP ONE (23:57)
[2019-07-29] MEDS ORDERED: ONDANSETRON 2MG/ML, 2ML IVPush PRN
[2019-07-29] MEDS ORDERED: LACTATED RINGERS 1,000 ML IVBOLUS ONE
== END 2019-07-29 06:15 | disposition home or self-care (01) ==
LOC: LDOP 22:23 → L&D 07-29 03:02 → UNDOADMOB 07-29 03:02 → L&D 07-29 03:13 → LDIP 07-29 03:13 → UNDODISOB 07-29 06:15 → LDOP 07-29 06:15
PROVIDERS: ATTEND Obstetrics & Gynecology
DX: O26.893 Other specified pregnancy related conditions, third trimester (principal); F12.90 Cannabis use, unspecified, uncomplicated; Z3A.31 31 weeks gestation of pregnancy
CPT/HCPCS: 59025; 76770; 80307; 81001; 87086; 96361; 96372; 96374; 96375; 96376; J2405; J3010; J3105; J7120; 96360; 99211; G0378; G0463

== ENCOUNTER 2020-05-06 20:42 | Emergency (ER) | payer MEDICAID ==
[~2020-05-06] VITALS: Ht 162.6 cm; Wt 90.0 kg
[~2020-05-06 20:42] MED LIST changes: -LACTATED RINGERS 1,000 ML ONE
--- NOTE | 2020-05-06 20:55 | NUR ---
PT BIB [facility] AND [facility] ON AN L2K, PT TOOK NUMEROUS 500MG TYLENOL AND ADVIL TONIGHT. PT RECENTLY HAD AN AND STATES SHE "JUST DOESNT WANT TO LIVE ANY MORE." PT CHANGED INTO GOWN, BELONINGS BAG LABELLED AND PLACED IN LOCKER 02/18, ONE TANK TOP AND PANTS. PT REQUESTED NO VISITORS. PT PLACED ON SPO2/BP/ECG MONITORING AT THIS TIME. ROOM SECURED SITTER IN LINE OF SIGHT
[2020-05-06] MEDS ORDERED: PLEASE ENTER HEIGHT AND WEIGHT MC SCH (21:00)
[2020-05-06] MEDS ORDERED: ONDANSETRON 2MG/ML, 2ML IVPush ONE (21:00)
--- NOTE | 2020-05-06 21:00 | NUR ---
PT RESTING ON TAYLOR GEORGE, APPEARS COMFORTABLE, ROOM SECURED, SITTER IN LINE OF SIGHT, REPORT TO GOLDEN MA, PT CARE TRANSFERRED AT THIS TIME.
--- NOTE | 2020-05-06 21:00 | NUR ---
PT ALSO REQUESTED NO INFORMATION TO BE RELEASED TO ANY ONE WHO MAY CALL ASKING ABOUT HER
--- NOTE | 2020-05-06 21:24 | NUR ---
Pt on monitor, warm blanket given. UA and blood sent to lab. IV placed per order. Pt calm in bed. Sitter outside room. Will continue to monitor.
[2020-05-06 21:27] LABS: AMPHETAMINE SCREEN, URINE Negative (Negative); BARBITURATE SCREEN, URINE Negative (Negative); BENZODIAZEPINE SCREEN, URINE Negative (Negative); CANNABINOID SCREEN, URINE Positive (Negative); COCAINE SCREEN, URINE Negative (Negative); METHADONE SCREEN, URINE Negative (Negative); OPIATE SCREEN, URINE Negative (Negative)
[2020-05-06 21:27] LABS: BASOPHILS % (AUTO) 1 % (0-1); EOSINOPHILS % (AUTO) 1 % (1-7); LYMPHOCYTES % (AUTO) 27 % (22-44); MEAN CORPUSCULAR HEMOGLOBIN 30.6 pg (27.0-34.8); MEAN CORPUSCULAR HGB CONC 34.2 g/dL (32.4-35.8); MEAN PLATELET VOLUME 7.7 fL (7.4-10.4); MONOCYTES % (AUTO) 7 % (2-9); NEUTROPHILS % (AUTO) 65 % (42-75); PLATELET COUNT 237 x10^3/uL (130-400); RED BLOOD COUNT 4.32 x10^6/uL (3.82-5.3); RED CELL DISTRIBUTION WIDTH 14.1 % (9.6-15.2)
[2020-05-06] MEDS ORDERED: ONDANSETRON 2MG/ML, 2ML ONE (21:27)
[2020-05-06 21:29] LABS: MD NO
[2020-05-06 21:33] LABS: ALANINE AMINOTRANSFERASE 21 U/L (12-78); ALBUMIN 3.7 g/dL (3.4-5.0); ANION GAP 6 mmol/L (5-15); CALCIUM 8.1 mg/dL (8.5-10.1); CHLORIDE 112 mmol/L (98-107); CREATININE 0.73 mg/dL (0.55-1.02)
[2020-05-06 21:34] LABS: SALICYLATE LEVEL < 1.7 mg/dL (2.8-20.0)
[2020-05-06 21:51] LABS: ALKALINE PHOSPHATASE 71 U/L (45-117); BILIRUBIN,TOTAL 0.4 mg/dL (0.2-1.0); TOTAL PROTEIN 7.5 g/dL (6.4-8.2)
--- NOTE | 2020-05-06 22:14 | NUR ---
Pt calm in room. No changes. Warm blanket given. Pt free of harm. Sitter outside room. Will continue to monitor closely.
--- NOTE | 2020-05-06 23:34 | NUR ---
Pt calm in room. No changes. Pt free of harm. Sitter outside room. Will continue to monitor.
--- NOTE | 2020-05-07 00:14 | NUR ---
PT RESTING QUIETLY IN BED WITH EYES CLOSED AND EVEN UNLABORED RESPIRATIONS NO SIGNS OR SYMPTOMS OF ACUTE DISTRESS NOTED SITTER IN DOORWAY TO MONITOR.
[2020-05-07] MEDS ORDERED: MAALOX/HYOSCYAMINE/LIDOCAINE 45 ML BTL ONE (01:39)
--- NOTE | 2020-05-07 01:40 | NUR ---
THROUGHPUT RN: PT PACKET FAXED TO [facility], [place] AND [facility] AT THIS TIME.
--- NOTE | 2020-05-07 01:57 | NUR ---
ACCEPTING PHYS, DR BONNER AT [facility]. RN CALLING FOR REPORT AT THIS TIME. ACCEPTING [facility]
[2020-05-07] MEDS ORDERED: MAALOX/HYOSCYAMINE/LIDOCAINE 45 ML BTL PO ONE (02:00)
--- NOTE | 2020-05-07 02:02 | NUR ---
Report to Belen at [facility]. Pt ambulatory to BR. No issues. GI cocktail given for GI discomfort.
[2020-05-07 03:42] VITALS: BP 100/59
--- NOTE | 2020-05-07 03:44 | NUR ---
Pt IV dc'd intact. Pt ambulatory without difficulty to ambulance. Pt sent with all belongings. Pt dc'd to [facility].
== END 2020-05-07 03:47 ==
LOC: ED 21:46
DX: T14.91XA Suicide attempt, initial encounter (principal); R94.31 Abnormal electrocardiogram [ECG] [EKG]; T39.1X2A Poisoning by 4-Aminophenol derivatives, intentional self-harm, initial encounter; Y92.9 Unspecified place or not applicable; Y93.89 Activity, other specified; Y99.8 Other external cause status
CPT/HCPCS: 36415; 80053; 80299; 80307; 80320; 84703; 85025; 93005; 96374; 99285; J2405; 80329; G0480

== ENCOUNTER 2020-08-23 11:18 | Emergency (ER) | payer MEDICAID ==
[~2020-08-23] VITALS: Ht 162.6 cm; Wt 90.9 kg
[2020-08-23 11:45] LABS: BASOPHILS % (AUTO) 1 % (0-1); EOSINOPHILS % (AUTO) 2 % (1-7); LYMPHOCYTES % (AUTO) 32 % (22-44); MEAN CORPUSCULAR HEMOGLOBIN 30.7 pg (27.0-34.8); MEAN CORPUSCULAR HGB CONC 33.6 g/dL (32.4-35.8); MEAN PLATELET VOLUME 7.8 fL (7.4-10.4); MONOCYTES % (AUTO) 6 % (2-9); NEUTROPHILS % (AUTO) 59 % (42-75); PLATELET COUNT 258 x10^3/uL (130-400); RED BLOOD COUNT 4.82 x10^6/uL (3.82-5.3); RED CELL DISTRIBUTION WIDTH 13.2 % (9.6-15.2)
[2020-08-23 11:55] LABS: ALANINE AMINOTRANSFERASE 24 U/L (12-78); ALBUMIN 3.8 g/dL (3.4-5.0); ANION GAP 3 mmol/L (5-15); CALCIUM 8.9 mg/dL (8.5-10.1); CHLORIDE 106 mmol/L (98-107); CREATININE 0.75 mg/dL (0.55-1.02)
[2020-08-23 11:59] LABS: ALKALINE PHOSPHATASE 86 U/L (45-117); BILIRUBIN,TOTAL 0.6 mg/dL (0.2-1.0)
--- NOTE | 2020-08-23 12:59 | NUR ---
ERECTING CRANE OPERATOR: PT TO ROOM FROM LOBBY, GAIT SLOW AND STEADY
--- NOTE | 2020-08-23 13:16 | NUR ---
PT CAME IN CO SEVERE LOWER ABD PAIN THAT STARTED THIS MORNING. PT ALSO REPORTS SHE FEELS THE CONSTANT URGE TO URINATE AND ALSO FEELS LIKE SHE IS CONSTIPATED AND UNABLE TO PASS STOOL OR GAS. PT RESTING IN [facility]. LABS DRAWN, US COMPLETE, URINE SENT. PT RESTING IN [facility]. CONNECTED TO MONITORING EQUIPMENT. BLANKET PROVIDED
[2020-08-23] MEDS ORDERED: KETOROLAC 60 MG/2 ML ONE (13:44)
--- NOTE | 2020-08-23 13:49 | NUR ---
pt medicated per emar. resting in bed. vss. nadn.
[2020-08-23] MEDS ORDERED: KETOROLAC 30 MG/1 ML IM ONE (14:00)
[2020-08-23 14:09] LABS: MICROSCOPIC AUTO
--- NOTE | 2020-08-23 14:48 | NUR ---
ASSUMED CARE OF PT FROM FRANCESCA MCGOVERN. PT SITTING ON THADDEUS GEORGE/HOAS. CALL LIGHT WITHIN REACH
--- NOTE | 2020-08-23 15:30 | NUR ---
PT TO CT
--- NOTE | 2020-08-23 15:46 | NUR ---
PT BACK FROM CT, CONNECTED TO ALL MONITORS. CALL LIGHT WITHIN REACH
--- NOTE | 2020-08-23 16:27 | NUR ---
PT SITTING ON THADDEUS GEORGE/RODRIGUEZ. CALL LIGHT WITHIN REACH. PT UPDATED ON POC. NO NEEDS AT THIS TIME
[2020-08-23 17:45] VITALS: BP 116/43
--- NOTE | 2020-08-23 17:45 | NUR ---
Patient given discharge instructions and RX, they have confirmed that they understand the instructions. Patient ambulatory with steady gait.
== END 2020-08-23 17:57 | disposition home or self-care (01) ==
LOC: ED 14:16
DX: R10.31 Right lower quadrant pain (principal); R11.2 Nausea with vomiting, unspecified; R63.0 Anorexia; Z68.34 Body mass index [BMI] 34.0-34.9, adult
CPT/HCPCS: 36415; 74021; 74176; 76700; 80053; 81001; 83690; 84703; 85025; 87086; 96372; 99285; J1885